=== PATIENT | female | born 1975 | race Caucasian/White ===

== ENCOUNTER 2018-05-01 12:24 | Emergency (ER) | payer MEDICAID, OTHER ==
[~2018-05-01] VITALS: Ht 170.2 cm; Wt 73.0 kg
[2018-05-01 12:33] VITALS: BP_SYST 131
--- NOTE | 2018-05-01 12:39 | NUR ---
Patient triaged and placed in waiting room. VSS and patient appears in no acute distress at this time. Accompanied by self, awaiting available bed, and MD notified of need for MSE.
--- NOTE | 2018-05-01 12:48 | NUR ---
Ambulatory to bed 5, placed in gown for evaluation
--- NOTE | 2018-05-01 13:24 | NUR ---
ER Dr. Chiang at bedside examining patient.
[2018-05-01] MEDS ORDERED: fentaNYL CITRATE/PF 100 MCG/2 ML AMP IM ONE (13:30)
[2018-05-01] MEDS ORDERED: ONDANSETRON 4 MG ODT TAB PO ONE (13:30)
--- NOTE | 2018-05-01 13:57 | NUR ---
Pt states that her sister can come and pick her up if discharged. Medicated per MD orders for pain. Asked to remain in bed d/t medication given, verbalized understanding. Awaiting XR.
--- NOTE | 2018-05-01 14:18 | NUR ---
Pt states that pain medication did not work, pain still 11/15. Dr. Chiang notified, orders recieved.
[2018-05-01] MEDS ORDERED: MORPHINE 4 MG/ML INJ. SYRINGE IVP ONE (14:30)
[2018-05-01] MEDS ORDERED: MORPHINE 4 MG/ML INJ. SYRINGE IM ONE ×2 (14:30→15:15)
--- NOTE | 2018-05-01 14:50 | NUR ---
Patient care endorsed to me. patient to er c/o severe 10/10 back pain radiating to thighs. no relief with otc
--- NOTE | 2018-05-01 16:04 | NUR ---
[facility]
--- NOTE | 2018-05-01 16:17 | NUR ---
ER MD Chiang at bedside discussing tests results and discharge with patient
[2018-05-01 16:35] VITALS: BP_SYST 109
--- NOTE | 2018-05-01 16:35 | NUR ---
Patient given written and verbal discharge instructions and verbalizes understanding. ER MD Chiang discussed with patient the results and treatment provided. Patient in stable condition. ID arm band removed. Rx of tramadol, medrol, robaxin, motrin given. Patient educated on pain management and to follow up with PMD. Pain Scale 0/10. Opportunity for questions provided and answered. Medication side effect fact sheet provided.
== END 2018-05-01 16:35 | disposition home or self-care (01) ==
LOC: SED 12:24
DX: R11.0 Nausea (principal); M54.40 Lumbago with sciatica, unspecified side
CPT/HCPCS: 72100; 96372; 99283; J2270; J3010; Q0162

== ENCOUNTER 2019-01-12 10:35 | Emergency (ER) | payer OTHER, MEDICAID ==
[~2019-01-12] VITALS: Ht 170.2 cm; Wt 61.2 kg
[2019-01-12 10:51] VITALS: BP_SYST 101
--- NOTE | 2019-01-12 10:56 | NUR ---
Patient to ER bed 05 to gown for evaluation. Side rails up.
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
--- NOTE | 2019-01-12 10:57 | NUR ---
ER Dr. Chiang at bedside examining patient.
[2019-01-12] MEDS ORDERED: LORazepam 2 MG/ML VIAL IM ONE (11:15)
[2019-01-12] MEDS ORDERED: KETOROLAC TROMETHAMINE 30 MG VIAL IM ONE (11:15)
--- NOTE | 2019-01-12 11:15 | NUR ---
Pt attempted to provide urine sample. Pt exited bathroom stating "I can't pee. I have a pee problem. You're gonna have to draw blood. I can't do it." Pt informed that MD requests urine sample. Pt agreed to a straight catheter.
--- NOTE | 2019-01-12 11:22 | NUR ---
Patient was observed hiding behind the door and vaping from her e-cigarette. She was instructed not to vape in the hospital. She states she is stressed. She was told that it is not acceptable. Addendum: 01/12/19 at 1130 by ASHLYN Patient did admit to vaping.
--- NOTE | 2019-01-12 11:33 | NUR ---
# 14 FR Elliott catheter with use of sterile technique. Immediate return of 20 cc yellow urine noted. Urine sample collected and sent to lab. Pt tolerated procedure well.
--- NOTE | 2019-01-12 11:37 | NUR ---
Pt taken to radiology via wheelchair in stable condition
[2019-01-12 12:00] LABS: BARBITURATE, URINE NEGATIVE (NEG <=200); BENZODIAZEPINE, URINE NEGATIVE (NEG <=150); CANNABINOID, URINE POSITIVE (NEG <=50); COCAINE, URINE NEGATIVE (NEG <=150); METHAMPHETAMINES SCREEN,URINE NEGATIVE (NEG <=500); OPIATE, URINE NEGATIVE (NEG <=100); PHENCYCLIDINE SCREEN,URINE NEGATIVE (NEG <=25); UR TRICYCLIC ANTIDEPRESSANTS NEGATIVE (NEG <=300); URINE AMPHETAMINE NEGATIVE (NEG <=500); URINE METHADONE NEGATIVE (NEG <=200); URINE OXYCODONE SCREEN NEGATIVE (NEG <=100); URINE PROPOXYPHENE SCREEN NEGATIVE (NEG <=300)
--- NOTE | 2019-01-12 12:02 | NUR ---
Pt returned from radiology via wheelchair in stable condition
--- NOTE | 2019-01-12 12:41 | NUR ---
Patient given written and verbal discharge instructions and verbalizes understanding. ER MD Chiang discussed with patient the results and treatment provided. Patient in stable condition. ID arm band removed. Rx of Ibuprofen given. Patient educated on pain management and to follow up with PMD. Pain Scale 0. Opportunity for questions provided and answered. Medication side effect fact sheet provided.
[2019-01-12 12:42] VITALS: BP_SYST 126
== END 2019-01-12 12:41 | disposition home or self-care (01) ==
LOC: SED 10:35
DX: R51 Headache (principal); M25.522 Pain in left elbow; M25.562 Pain in left knee; F17.290 Nicotine dependence, other tobacco product, uncomplicated; Y04.0XXA Assault by unarmed brawl or fight, initial encounter; Y93.89 Activity, other specified; Y92.89 Other specified places as the place of occurrence of the external cause; Y99.8 Other external cause status
CPT/HCPCS: 70450; 72125; 73080; 73564; 80307; 81025; 96372; 99284; J1885; J2060

== ENCOUNTER 2020-09-12 06:35 | Emergency (ER) | payer OTHER, MEDICAID ==
[~2020-09-12] VITALS: Ht 170.2 cm; Wt 58.5 kg
[2020-09-12 06:59] VITALS: BP_SYST 105
[2020-09-12] MEDS ORDERED: DIAZEPAM 5 MG TABLET (VALIUM) PO ONE (07:30)
[2020-09-12] MEDS ORDERED: MORPHINE SULFATE 10 MG/ML VIAL IM ONE (07:30)
[2020-09-12] MEDS ORDERED: VAL2 PO (08:54)
[2020-09-12] MEDS ORDERED: DIAZ5TAB4 PO (08:56)
[2020-09-12 09:12] VITALS: BP_SYST 103
== END 2020-09-12 09:10 | disposition home or self-care (01) ==
LOC: SED 06:35
DX: M54.6 Pain in thoracic spine (principal); Z79.899 Other long term (current) drug therapy
CPT/HCPCS: 96372; 99283; J2270

== ENCOUNTER 2020-11-08 07:48 | Emergency (ER) | payer OTHER, MEDICAID ==
[~2020-11-08 07:48] MED LIST: DIAZ5TAB4 PO
[2020-11-08 08:00] VITALS: BP_SYST 94
--- NOTE | 2020-11-08 08:05 | NUR ---
pt onur and placed in the waiting room
--- NOTE | 2020-11-08 08:58 | NUR ---
pt left without being seen
[2020-11-08 09:01] VITALS: BP_SYST 94
== END 2020-11-08 08:58 | disposition left against medical advice (07) ==
LOC: SED 07:48
DX: M54.9 Dorsalgia, unspecified (principal); Z53.21 Procedure and treatment not carried out due to patient leaving prior to being seen by health care provider

== ENCOUNTER 2020-11-20 00:17 | Emergency (ER) | payer OTHER, MEDICAID ==
[~2020-11-20] VITALS: Ht 170.2 cm; Wt 54.0 kg
--- NOTE | 2020-11-20 00:54 | NUR ---
DR. DUQUE WITH PATIENT FOR EXAMINATION.
[2020-11-20 00:55] VITALS: BP_SYST 103
--- NOTE | 2020-11-20 00:55 | NUR ---
PT TRIAGED AND PLACED IN WAITING ROOM, UNTIL AVAILABLE BED IS OPENED. VSS.
[2020-11-20] MEDS ORDERED: KETOROLAC TROMETHAMINE 60 MG/2 ML VIAL IM ONE (01:00)
[2020-11-20] MEDS ORDERED: CYCLOBENZAPRINE HCL 10 MG TABLET (FLEXERIL) PO ONE (01:00)
--- NOTE | 2020-11-20 01:00 | NUR ---
PATIENT AAOX4 AND AMBUALTORY C/O CHRONIC BACK PAIN. PER PATIENT SHE HAS FINISHED TAKING HER MEDICATION AND IS HAVING A FLAIR UP. CURRENTLY STATING 4/10 ON THE PAIN SCALE. VSS.
--- NOTE | 2020-11-20 01:08 | NUR ---
MEDICATION ADMINISTERED ORDERED.
[2020-11-20 01:11] VITALS: BP_SYST 103
--- NOTE | 2020-11-20 01:11 | NUR ---
Patient given written and verbal discharge instructions and verbalizes understanding. DR.AZUBUIKE KARIME WHITE discussed with patient the results and treatment provided. Patient in stable condition. ID arm band removed. Patient educated on pain management and to follow up with PMD. Pain Scale 0/10 Opportunity for questions provided and answered. Medication side effect fact sheet provided.
== END 2020-11-20 01:11 | disposition home or self-care (01) ==
LOC: SED 00:17
DX: G89.29 Other chronic pain (principal); M54.5 Low back pain; Z79.899 Other long term (current) drug therapy
CPT/HCPCS: 96372; 99283; J1885